=== PATIENT | female | born 1980 ===

== ENCOUNTER 2018-09-23 10:03 | Emergency (ER) | payer MEDICAID ==
[2018-07-10 16:18] VITALS: BMI 30.7
--- NOTE | 2018-09-23 12:36 | OBHP ---
Datetime: 09/23/2018 10:39 IP Adm Impression: Term, intrauterine IP Admit Plan: Observation/Evaluation Admit Comment, IP Provider: HPI: 37 YO with IUP at EGA 38.3, EDC 10/04/18 presents with c/o pe lvic pain since yesterday at 6PM, pain is moderate, constatnt with intermittent intensification Q1h, also patient reports that yesterday at the same time she noticed loss of mucous mixed with blood, she states that she has vaginal discharge, patient reports good FM ROS: All systems reviewed and found negative, except as per HPI. OBGYN: x5 all full term, denies previous problems in pregnancies or in current . Last US reports CONCETTA 7.9 Provider: Dr Gamboa PMH: Denies FMH: Denies SOCHX: Denies ETHO/TOB/Drugs ALLERG: NKA SURG: Denies LABS: HIV neg, HBsAg Neg, GBS Negative, Rubella [place], GC/CL NEg, RPR Neg, ABO A+ ab NEg. Quantif muna Negative. PE GEN:Appears confortable, VS WNL RESP : CTA CV: RRR, S1S2 PResent ABD: Gravid EXT: No edema Pelvic: Cervix FT. Speculum exam: whitish mucous vsualized, Nitrazine test Negative [place]: No contractions FHR: 130 A/P 37 YO with IUP at EGA 38.3, EDC 10/04/18, presents for evaluation of possible labor. Plan: -Maternal VS monitoring -UT CONTX monitoring -FHR montoring Case discussed with attending MD Cindy PGY1 Patient was seen with the resident I agree with the note patient cleared for discharge CONCETTA adequat e, nitrazine and fern test negative, patient discharged home with labor precautions Extremities - PN: Normal Breast - PN: Not Done Lungs - PN: Normal Heart - PN: Normal HEENT - PN: Normal General - PN: Normal FHR - Baseline A Provider: 130 Comments, ACOG Physical Exam: see triage comment Nitrazine Provider: Negative IP Hx Assessment: The History has been Reviewed and is Current EGA AdmitDate IP: 38.3 Vital Signs Provider: Reviewed; Within Normal Limits IP Chief Complaint: Uterine contractions; Maternal discomfort NICHD Variability Prov Fetus A: Moderate 6-25bpm NICHD Accel Fetus A IP Provider: 15X15 FHR Category Provider Fetus A: Category I NICHD Decel Fetus A IP Provider: None
[2018-09-23 17:22] VITALS: BP 104/66; PULSE 59; RESP 18; TEMP 98.2; O2SAT 99
== END 2018-09-23 12:55 | disposition home or self-care (01) ==
LOC: H.EROB2 10:03
DX: O26.93 Pregnancy related conditions, unspecified, third trimester (principal); R10.2 Pelvic and perineal pain; O34.63 Maternal care for abnormality of vagina, third trimester; N89.8 Other specified noninflammatory disorders of vagina; Z3A.38 38 weeks gestation of pregnancy

== ENCOUNTER 2018-09-25 10:56 | Inpatient (IN) | payer MEDICAID ==
[2018-09-25 14:10] VITALS: BMI 32.0
[2018-09-25] MEDS ORDERED: OXYTOCIN/0.9 % NS 20 UNIT/1,000 ML BAG IV ONE (14:11)
[2018-09-25] MEDS ORDERED: Oxytocin 30 UNIT in NS 500 ml 30 UNITS/500 ML BAG IV ONE (14:11)
[2018-09-25] MEDS ORDERED: Oxytocin 10 Units/ml Inj ONE ×2 (14:15→14:16)
[2018-09-25] MEDS ORDERED: Lactated Ringer's 1,000 ML IV SCH (14:15)
[2018-09-25] MEDS ORDERED: Oxycodone/Acetaminophen 5/325 mg Tab PO PRN ×2 (14:38)
[2018-09-25] MEDS ORDERED: Benzocaine/Menthol SPRAY TOP PRN (14:38)
[2018-09-25 15:07] LABS: BASO # 0.1 K/uL (0.0-0.2); BASO % 0.8 % (0.0-2.0); EOS # 0.1 K/uL (0.0-0.7); EOS % 0.5 % (0.0-4.0); LYMPH # 1.6 K/uL (1.0-4.3); LYMPH % 16.4 % (20.0-40.0); MEAN CELL VOLUME 82.8 fl (81.0-99.0); MEAN CORPUSCULAR HEMOGLOBIN 27.6 pg (27.0-31.0); MEAN CORPUSCULAR HGB CONC 33.3 g/dL (33.0-37.0); MEAN PLATELET VOLUME 9.8 fl (7.2-11.7); MONO # 0.5 K/uL (0.0-0.8); MONO % 5.5 % (0.0-10.0); NEUT # 7.5 K/uL (1.8-7.0); NEUT % 76.8 % (50.0-75.0); NRBC % 0.1 % (0.0-0.0); RBC 4.34 Mil/uL (3.80-5.20); RED CELL DISTRIBUTION WIDTH 14.1 % (11.5-14.5); WHITE BLOOD COUNT 9.7 K/uL (4.8-10.8)
[2018-09-26 06:32] LABS: BASO % 0.2 % (0.0-2.0); EOS # 0.1 K/uL (0.0-0.7); EOS % 1.1 % (0.0-4.0); HEMOGLOBIN 10.8 g/dL (12.0-16.0); LYMPH # 1.7 K/uL (1.0-4.3); LYMPH % 19.9 % (20.0-40.0); MEAN CELL VOLUME 83.4 fl (81.0-99.0); MEAN CORPUSCULAR HEMOGLOBIN 27.6 pg (27.0-31.0); MEAN CORPUSCULAR HGB CONC 33.1 g/dL (33.0-37.0); MEAN PLATELET VOLUME 9.9 fl (7.2-11.7); MONO # 0.5 K/uL (0.0-0.8); MONO % 5.6 % (0.0-10.0); NEUT # 6.4 K/uL (1.8-7.0); NEUT % 73.2 % (50.0-75.0); RBC 3.92 Mil/uL (3.80-5.20); RED CELL DISTRIBUTION WIDTH 14.2 % (11.5-14.5); WHITE BLOOD COUNT 8.7 K/uL (4.8-10.8)
--- NOTE | 2018-09-26 08:48 | OBADHP ---
Datetime: 09/25/2018 14:30 Admit Comment, IP Provider: HPI: Angelica is a 37 year old who initially presented for contraction s. On recheck patient's cervical exam was 7cm. OBGYN: x5 all full term, denies previous problems in pregnancies or in current . Last US reports CONCETTA 7.9. Patient reports h/o of precipitous delivery in last . Provider: Dr Gamboa PMH: Denies FMH: Denies SOCHX: Denies ETHO/TOB/Drugs ALLERG: NKA SURG: Denies PHYSICAL EXAM Vitals reviewed Cervical exam done by nursing LABS: HIV neg, HBsAg Neg, GBS Negative, Rubella [place], GC/CL NEg, RPR Neg, ABO A+ ab NEg. Quantif muna Negative. ASSESSMENT/PLAN: 37 year old at 38.5 who presents in labor - Admit to L_D - GBS negative - Labor orders initiated - Anticipate vaginal delivery Plan discussed with attending Dr. Tracy Garcia MD OB Fellow Lungs - PN: Normal Heart - PN: Normal Neurologic - PN: Normal HEENT - PN: Normal General - PN: Normal Presentation-Admit: Vertex FHR - Baseline A Provider: 130 Gestation - Est Wks by US: 38.5 Vital Signs Provider: Reviewed; Within Normal Limits IP Chief Complaint: Uterine contractions NICHD Variability Prov Fetus A: Moderate 6-25bpm NICHD Accel Fetus A IP Provider: 15X15 FHR Category Provider Fetus A: Category I NICHD Decel Fetus A IP Provider: None Dilatation, Provider: 7 EGA AdmitDate IP: 38.5 IP Adm Impression: Term, intrauterine IP Admit Plan: Admit to unit; Initiate labor protocol Datetime: 09/25/2018 11:39 Extremities - PN: Normal Abdomen - PN: Normal Breast - PN: Not Done Comments, ACOG Physical Exam: see triage comments IP Hx Assessment: The History has been Reviewed and is Current Datetime: 09/23/2018 10:39 Nitrazine Provider: Negative
--- NOTE | 2018-09-26 08:51 | OBDS ---
DELIVERY PERSONNEL Delivery Doctor: Edin Molina MD Scrub Nurse: Berkley Matta Nut Blanker Operator: Marion Bustos RN MATERNAL INFORMATION Delivery Anesthesia: None Medications in Delivery: Pitocin 30 units Placenta Cultured: No Maternal Complications: Precipitous Labor (<3hrs) Provider Comments: 37 year old at 38.5 admitted in spontaneous labor. Progressed to normal spon taneous vaginal delivery at 14:22 of live male infact, position CARLO over intact perineum without epid ural anesthesia. placed on maternal abdomen and delayed cord clamping was performed. Apgars 9_ 9, no excessive resuscitation required. No meconium or nuchal cord. Spontaneous delivery of placenta with 3-vessel cord. QBL 75cc. Attending Dr. Molina was present for delivery. Vy Garcia MD OB Fellow LABOR SUMMARY EDC: 10/04/2018 00:00 EDC: 10/04/2018 00:00 No. Babies in Womb: 1 Attempted: No Labor Anesthesia: None LABOR INFORMATION Reason for Induction: Not Applicable Onset of Labor: 09/25/2018 14:00 Complete Dilatation: 09/25/2018 14:12 Oxytocin: N/A Group B Beta Strep: Negative Group B Beta Strep: Negative Steroids Given: None Reason Steroids Not Administered: Not Applicable MEMBRANES Membranes Rupture Method: Artificial Rupture of Membranes: 09/25/2018 14:15 Length of Rupture (hrs): 0.12 Amniotic Fluid Color: Clear Amniotic Fluid Amount: Small Amniotic Fluid Odor: Normal STAGES OF LABOR Stage 1 hrs: 0 Stage 1 min: 12 Stage 2 hrs: 0 Stage 2 min: 10 Stage 3 hrs: 0 Stage 3 min: 6 Total Time in Labor hrs: 0 Total Time in Labor min: 28 VAGINAL DELIVERY Episiotomy: None Laceration Extension: N/A Laceration Type: None Laceration Repair: Not Applicable Initial Vag Sponge Count: 10 Final Vag Sponge Count: 10 Initial Vag Sharps Count: 0 Final Vag Sharps Count: 0 Sponge Count Correct: Yes Sharps Count Correct: N/A BABY A INFORMATION Infant Delivery Date/Time: 09/25/2018 14:22 Method of Delivery: Vaginal Born in Route : No : N/A Forceps: N/A Vacuum Extraction: N/A Shoulder Dystocia : No SHOULDER DYSTOCIA BABY A Infant Delivery Date/Time: 09/25/2018 14:22 PRESENTATION/POSITION BABY A Presentation: Cephalic Cephalic Presentation: Vertex Breech Presentation: N/A PLACENTA INFORMATION BABY A Placenta Delivery Time : 09/25/2018 14:28 Placenta Method of Delivery: Spontaneous Placenta Status: Delivered SCORES BABY A Heart Rate 1 min: >100 bpm Resp Effort 1 min: Good Cry Reflex Irritability 1 min: Cough or Sneeze or Pulls Away Muscle Tone 1 min: Active Motion Color 1 min: Body [place], Extremities Blue Resuscitation Effort 1 min: Tactile Stimulation SCORE 1 MIN: 9 Heart Rate 5 min: >100 bpm Resp Effort 5 min: Good Cry Reflex Irritability 5 min: Cough or Sneeze or Pulls Away Muscle Tone 5 min: Active Motion Color 5 min: Body [place], Extremities Blue Resuscitation Effort 5 min: Tactile Stimulation SCORE 5 MIN: 9 INFORMATION BABY A Gestational Age at Delivery: 38.0 Gestational Status: Term Outcome : Liveborn Condition : Stable Sex: Male IDENTIFICATION/MEDS BABY A ID Band Number: [id number] ID Band Location: Left Leg; Left Arm WEIGHT/LENGTH BABY A Infant Birthweight (gms): 3090 Weight (lb): 6 Infant Weight (oz): 13 CORD INFORMATION BABY A No. Cord Vessels: 3 Nuchal Cord : N/A Cord Blood Taken: N/A Infant Suction: None ASSESSMENT BABY A Infant Complications: None Physical Findings at Delivery: Within Normal Limits Infant Respirations: Appears Normal Jeweler Apprentice/ALS Called : No Infant Care By: Apolonia/La Transferred To: Remains with Mother
--- NOTE | 2018-09-26 08:51 | OBDS ---
DELIVERY PERSONNEL Delivery Doctor: Edin Molina MD Scrub Nurse: Berkley Matta Topographical Drafter: Marion Bustos RN MATERNAL INFORMATION Delivery Anesthesia: None Medications in Delivery: Pitocin 30 units Placenta Cultured: No Maternal Complications: Precipitous Labor (<3hrs) Provider Comments: 37 year old at 38.5 admitted in spontaneous labor. Progressed to normal spon taneous vaginal delivery at 14:22 of live male infact, position CARLO over intact perineum without epid ural anesthesia. placed on maternal abdomen and delayed cord clamping was performed. Apgars 9_ 9, no excessive resuscitation required. No meconium or nuchal cord. Spontaneous delivery of placenta with 3-vessel cord. QBL 75cc. Attending Dr. Molina was present for delivery. Vy Garcia MD OB Fellow LABOR SUMMARY EDC: 10/04/2018 00:00 No. Babies in Womb: 1 Attempted: No Labor Anesthesia: None LABOR INFORMATION Reason for Induction: Not Applicable Onset of Labor: 09/25/2018 14:00 Complete Dilatation: 09/25/2018 14:12 Oxytocin: N/A Group B Beta Strep: Negative Steroids Given: None Reason Steroids Not Administered: Not Applicable MEMBRANES Membranes Rupture Method: Artificial Rupture of Membranes: 09/25/2018 14:15 Length of Rupture (hrs): 0.12 Amniotic Fluid Color: Clear Amniotic Fluid Amount: Small Amniotic Fluid Odor: Normal STAGES OF LABOR Stage 1 hrs: 0 Stage 1 min: 12 Stage 2 hrs: 0 Stage 2 min: 10 Stage 3 hrs: 0 Stage 3 min: 6 Total Time in Labor hrs: 0 Total Time in Labor min: 28 VAGINAL DELIVERY Episiotomy: None Laceration Extension: N/A Laceration Type: None Laceration Repair: Not Applicable Initial Vag Sponge Count: 10 Final Vag Sponge Count: 10 Initial Vag Sharps Count: 0 Final Vag Sharps Count: 0 Sponge Count Correct: Yes Sharps Count Correct: N/A BABY A INFORMATION Infant Delivery Date/Time: 09/25/2018 14:22 Method of Delivery: Vaginal Born in Route : No : N/A Forceps: N/A Vacuum Extraction: N/A Shoulder Dystocia : No SHOULDER DYSTOCIA BABY A Infant Delivery Date/Time: 09/25/2018 14:22 PRESENTATION/POSITION BABY A Presentation: Cephalic Cephalic Presentation: Vertex Breech Presentation: N/A PLACENTA INFORMATION BABY A Placenta Delivery Time : 09/25/2018 14:28 Placenta Method of Delivery: Spontaneous Placenta Status: Delivered SCORES BABY A Heart Rate 1 min: >100 bpm Resp Effort 1 min: Good Cry Reflex Irritability 1 min: Cough or Sneeze or Pulls Away Muscle Tone 1 min: Active Motion Color 1 min: Body [place], Extremities Blue Resuscitation Effort 1 min: Tactile Stimulation SCORE 1 MIN: 9 Heart Rate 5 min: >100 bpm Resp Effort 5 min: Good Cry Reflex Irritability 5 min: Cough or Sneeze or Pulls Away Muscle Tone 5 min: Active Motion Color 5 min: Body [place], Extremities Blue Resuscitation Effort 5 min: Tactile Stimulation SCORE 5 MIN: 9 INFORMATION BABY A Gestational Age at Delivery: 38.0 Gestational Status: Term Outcome : Liveborn Condition : Stable Infant Sex: Male IDENTIFICATION/MEDS BABY A ID Band Number: [id number] ID Band Location: Left Leg; Left Arm WEIGHT/LENGTH BABY A Infant Birthweight (gms): 3090 Weight (lb): 6 Weight (oz): 13 CORD INFORMATION BABY A No. Cord Vessels: 3 Nuchal Cord : N/A Cord Blood Taken: N/A Infant Suction: None ASSESSMENT BABY A Complications: None Physical Findings at Delivery: Within Normal Limits Respirations: Appears Normal Survey Supervisor/ALS Called : No Care By: Apolonia/La Transferred To: Remains with Mother
--- NOTE | 2018-09-26 10:57 | OBPPN ---
Datetime: 09/26/2018 06:21 PP Pain Prov: Within normal limits PP Nausea Prov: Denies PP Flatus Prov: Yes PP BM Prov: No PP Breasts Prov: Not Done PP Heart Prov: Normal PP Lungs Prov: Normal PP Abdomen/Uterus Prov: Normal PP Lochia Prov: Normal PP Vulva/Perineum Prov: Normal PP CVA Tenderness Prov: Normal PP Extremities Prov: Normal PP C/S Incision Prov: Not Applicable PP Progress Prov: Normal PP Comments Phys Exam Prov: See note PP Impression Prov: Normal progression PP Plan Prov: Continue present management PP Progress Note Prov: Pt is a 37 YO , PPD 1 s/p on 09/25/18. Seen and examined at bedside N o complain as per today. Pt pain improved. Ambulate without difficulties Pt is breast and bottle feed ing, she is tolerating regular diet. Lochia less than menses in volume. +Flatus, -BM. Denies fevers, chills, dizziness, chest pain, SOB, N/V/D, hematuria or dysuria. Patient denies circumcision VS: Vitals WNL Gen: NAD HEENT: NCAT Cardio: + S1S2, RRR Lungs: CTA B/L, no wheezes Abd: soft, appropriate tenderness to palpation, + BS, Uterus firm below level of umbilicus Ext: No edema, calves non tender Assessment: Pt is a 37 YO , s/p PPD 1, with normal progression. Plan: - and ambulation encouraged. - Ibuprofen 600 mg 1 tab Q 6h PRN mild pain -Continue vitamin Case discussed with attending Jackie PGy1 Addendum by Dr. Wolf: I have evaluated the patient independently and I agree with the above Vital Signs Provider PP: Reviewed; Within Normal Limits
--- NOTE | 2018-09-27 10:29 | OBDCSUM ---
Datetime: 09/27/2018 07:24 Discharged to, Provider: Home Follow up at, Provider: OB Disch Instr Activity: Normal activity; May be up to bathroom; May be up for meals; May Shower Disch Instr Diet: Regular Discharge Diet restrict Prov: none Discharge Diagnosis, Provider: Term Delivered Discharge Time: 09/27/2018 10:00 Follow up in weeks, Provider: 4-6 weeks check up Disch Referrals: None Disch Activity Restrictions: No lifting; Minimize stair-climbing; No sexual activity; Nothing in vag annabelle - [place], tampons, douche Discharge Comment, Provider: 37 YO , s/p on 09/25/18 [place]: Male, Wt. 3090 gm, 9/9 Intrapartum: EBL 75 ml. No complications during post- period, today on her day 2 PPD with no rmal progression . Lochia is less than menses. Pt able to pass flatus, has passed a bowel m ovement. Voiding well and able to ambulate without difficulty. Tolerating regular diet w/o N/V. Fundu s firm below umbilicus level. Pt is hemodynamically stable. H/H: 10.8/32.7 Discharge Instructions given to patient: Encourage PNV 1 tab po q/day Ibuprofen 400 mg 1 tab po prn q4-6 if moderate pain. Ambulatory with caution, nothing per vagina/sex for 4 weeks, no heavy lifting, avoid stairs, if ex cessive bleeding or fever without relief from Tylenol go to ED ED precautions: If excessive bleeding, pain that does not get relief, fever >100.4, palpitations, SOB, CP or other concerning symptom go to the ED. PT was urged if feeling sad, mood swing, depression, neglect of baby, suicidal thoughts, homicidal thoughts go to ER or call 911 for help Follow-up with [facility] clinic in 4 to 6 weeks for post- check with Dr Gamboa.
--- NOTE | 2018-09-27 10:29 | OBPPN ---
Datetime: 09/27/2018 08:29 PP Pain Prov: Within normal limits PP Nausea Prov: Denies PP Flatus Prov: Yes PP BM Prov: Yes PP Heart Prov: Normal PP Lungs Prov: Normal PP Abdomen/Uterus Prov: Normal PP Lochia Prov: Not Done PP Vulva/Perineum Prov: Not Done PP Extremities Prov: Normal PP Progress Prov: Normal PP Comments Phys Exam Prov: see note PP Impression Prov: Normal progression PP Plan Prov: Continue present management PP Progress Note Prov: Pt is a 37 YO , PPD 2 s/p on 09/25/18. Seen and examined at bedside N o complain as per today. Pt pain improved. Ambulate without difficulties Pt is breast and bottle feed ing, she is tolerating regular diet. Lochia less than menses in volume. +Flatus, -BM. Denies fevers, chills, dizziness, chest pain, SOB, N/V/D, hematuria or dysuria. VS: Vitals WNL Gen: NAD HEENT: NCAT Cardio: + S1S2, RRR Lungs: CTA B/L, no wheezes Abd: soft, appropriate tenderness to palpation, + BS, Uterus firm below level of umbilicus Ext: No edema, calves non tender Assessment: Pt is a 37 YO , s/p PPD 2, with normal progression. Plan: - and ambulation encouraged. - Ibuprofen 600 mg 1 tab Q 6h PRN mild pain -Continue vitamin -DC plan today Case discussed with attending MD Cindy PGY1 Addendum by Dr. almaguer: I have evaluated the patient independently and I agree with the above Vital Signs Provider PP: Reviewed; Within Normal Limits
[2018-09-27 19:25] VITALS: BP 117/59; PULSE 67; RESP 18; TEMP 98.2
== END 2018-09-27 14:05 | disposition home or self-care (01) | DRG 560 ==
LOC: H.EROB2 10:56 → H.L&D 14:10 → H.OB/GYN 17:10
PROVIDERS: ADMIT Obstetrics & Gynecology; ATTEND Obstetrics & Gynecology
PROC: 10E0XZZ Delivery of Products of Conception, External Approach (ICD-10-PCS; principal; 2018-09-25)
PROC: 4A1HXCZ Monitoring of Products of Conception, Cardiac Rate, External Approach (ICD-10-PCS; 2018-09-25)
DX: O62.3 Precipitate labor (principal); Z37.0 Single live birth; Z3A.38 38 weeks gestation of pregnancy